=== PATIENT | female | born 1990 | race Caucasian/White ===

== ENCOUNTER 2022-12-10 00:19 | Emergency (ER) | payer SELFPAY ==
[2022-12-10 00:42] LABS: BASOPHILS ABSOLUTE AUTO 0.02 K/mm3 (0.01-0.08); BASOPHILS PERCENT AUTO 0.2 % (0.1-1.2); EOSINOPHILS ABSOLUTE AUTO 0.14 K/mm3 (0.04-0.36); EOSINOPHILS PERCENT AUTO 1.6 (0.7-5.8); HEMATOCRIT 37.6 % (34.1-44.9); HEMOGLOBIN 12.2 gm/dl (11.2-15.7); IMMATURE GRAN ABSOLUTE AUTO 0.01 K/mm3 (0.00-0.10); IMMATURE GRAN PERCENT AUTO 0.1 % (<=1.0); LYMPHOCYTES PERCENT AUTO 32.4 % (19.3-51.7); MEAN CORPUSCULAR HEMOGLOBIN 25.8 pg (25.6-32.2); MEAN CORPUSCULAR HGB CONC 32.4 g/dl (32.2-35.5); MEAN CORPUSCULAR VOLUME 79.7 fl (79.4-94.8); MEAN PLATELET VOLUME 12.1 fl (9.4-12.3); MONOCYTES ABSOLUTE AUTO 0.44 K/mm3 (0.24-0.36); MONOCYTES PERCENT AUTO 5.1 % (4.7-12.5); NEUTROPHILS ABSOLUTE AUTO 5.24 K/mm3 (1.56-6.13); NEUTROPHILS PERCENT AUTO 60.6 % (34.0-71.1); PLATELET COUNT,PLT 264 K/mm3 (182-369); RED BLOOD CELL COUNT 4.72 M/mm3 (3.98-5.22); WHITE BLOOD CELL COUNT,WBC 8.65 K/mm3 (3.98-10.04)
[2022-12-10 01:06] LABS: A/G RATIO 1.1 (1-2); ANION GAP 14.6 (5-15); BILIRUBIN TOTAL 0.2 mg/dL (0.2-1.0); BUN/CREATININE RATIO 17.8 (14-18); CALCIUM 9.2 mg/dL (8.5-10.1); CREATININE 0.9 mg/dL (0.55-1.02); EST CRCL DRUG DOSING (CG) 75.61 mL/min; POTASSIUM,K 3.6 mEq/L (3.5-5.1); PROTEIN TOTAL,TP 7.8 g/dl (6.4-8.2)
[2022-12-10 01:51] VITALS: BP 132/77; PULSE 83
== END 2022-12-10 01:29 | disposition home or self-care (01) ==
LOC: JD.ED 00:19
DX: R07.89 Other chest pain (principal); Z91.041 Radiographic dye allergy status; Z91.011 Allergy to milk products; Z91.048 Other nonmedicinal substance allergy status
CPT/HCPCS: 36415; 71045; 71045-26; 80053; 84484; 85025; 93010; 99282; 99285